=== PATIENT | female | born 1980 | race Caucasian/White ===

== ENCOUNTER 2016-12-17 23:45 | Emergency (ER) | payer OTHER ==
[~2016-12-17 23:45] MED LIST: BACTRIM DS TABL1 TA1 PO; DIFLUCAN100 MG PO; KEFLEX500 M1 PO; NO MEDICATIONS; NORCO 7.5-3251 EACH PO; PREDNISONE PO
== END 2016-12-18 01:19 | disposition home or self-care (01) ==
LOC: SED 23:45
DX: H60.91 Unspecified otitis externa, right ear (principal); L73.9 Follicular disorder, unspecified
CPT/HCPCS: 99282

== ENCOUNTER 2017-03-13 21:38 | Emergency (ER) | payer OTHER | END 2017-03-13 23:18 | disposition home or self-care (01) | LOC: SED 21:38 | DX: N76.4 Abscess of vulva (principal); F17.210 Nicotine dependence, cigarettes, uncomplicated | CPT/HCPCS: 56405; 87070; 87077; 87186; 87205; 99283 ==